=== PATIENT | female | born 1980 | race Caucasian/White ===

== ENCOUNTER 2016-10-04 23:16 | Emergency (ER) | payer OTHER | END 2016-10-05 00:57 | disposition home or self-care (01) | LOC: ER1 23:16 | DX: S90.32XA Contusion of left foot, initial encounter (principal); F17.210 Nicotine dependence, cigarettes, uncomplicated; Z88.2 Allergy status to sulfonamides; W20.8XXA Other cause of strike by thrown, projected or falling object, initial encounter | CPT/HCPCS: 73630; 99283 ==

== ENCOUNTER → 2016-10-15 | Outpatient (CLI) | payer OTHER ==
[2016-10-15 17:33] LABS: RED BLOOD COUNT 4.42 M/UL (4.00-5.10); WHITE BLOOD COUNT 8.7 K/UL (4.5-11.0)
[2016-10-15 17:53] LABS: BUN/CREATININE RATIO 20 (0-10)
== END ==
LOC: LAB 16:46
PROVIDERS: Emergency Medicine
DX: D50.8 Other iron deficiency anemias (principal); D64.89 Other specified anemias; E05.00 Thyrotoxicosis with diffuse goiter without thyrotoxic crisis or storm; F32.89 Other specified depressive episodes; G43.009 Migraine without aura, not intractable, without status migrainosus; G56.01 Carpal tunnel syndrome, right upper limb; G56.02 Carpal tunnel syndrome, left upper limb; G60.3 Idiopathic progressive neuropathy; G60.8 Other hereditary and idiopathic neuropathies; G89.4 Chronic pain syndrome; L23.89 Allergic contact dermatitis due to other agents; M13.871 Other specified arthritis, right ankle and foot; M13.872 Other specified arthritis, left ankle and foot; M15.8 Other polyosteoarthritis; M51.36 Other intervertebral disc degeneration, lumbar region; M62.81 Muscle weakness (generalized); M79.1 Myalgia; M79.671 Pain in right foot; M79.672 Pain in left foot; R10.813 Right lower quadrant abdominal tenderness; R21 Rash and other nonspecific skin eruption; W19.XXXS Unspecified fall, sequela
CPT/HCPCS: 36415; 80053; 84443; 85027

== ENCOUNTER → 2016-12-15 | Outpatient (CLI) | payer OTHER | LOC: KOH-I 12-03 13:15 | DX: G44.311 Acute post-traumatic headache, intractable (principal); D50.8 Other iron deficiency anemias; D64.89 Other specified anemias; E05.00 Thyrotoxicosis with diffuse goiter without thyrotoxic crisis or storm; F32.89 Other specified depressive episodes; F41.1 Generalized anxiety disorder; G43.009 Migraine without aura, not intractable, without status migrainosus; G56.01 Carpal tunnel syndrome, right upper limb; G56.02 Carpal tunnel syndrome, left upper limb; G60.3 Idiopathic progressive neuropathy; G60.8 Other hereditary and idiopathic neuropathies; G89.4 Chronic pain syndrome; L23.89 Allergic contact dermatitis due to other agents; M13.871 Other specified arthritis, right ankle and foot; M13.872 Other specified arthritis, left ankle and foot; M51.36 Other intervertebral disc degeneration, lumbar region; M62.81 Muscle weakness (generalized); M79.671 Pain in right foot; M79.672 Pain in left foot; R10.813 Right lower quadrant abdominal tenderness; R21 Rash and other nonspecific skin eruption; R90.82 White matter disease, unspecified | CPT/HCPCS: 70551 ==

== ENCOUNTER 2020-08-02 23:13 | Emergency (ER) | payer OTHER ==
[~2020-08-02 23:13] MED LIST: AMPYRA10 MG PO; BENTYL 20MG TAB20 MG PO; CALAN SR120 MG PO; CELEXA20 MG PO; CLARITIN10 MG PO; CLEOCIN HCL150 MG PO; EFFEXOR XR75 MG PO; ELAVIL 25 MG TA25 MG PO; FEOSOL325 MG PO; IBUPROFEN600 MG PO; LODINE CAP 300300 MG PO; MOBIC15 MG PO; NEURONTIN 400400 MG PO; NORCO 5-325 TA1 EACH PO; PERCOCET 5/325 T1 EA PO; PHENERGAN 25 MG25 M1 PO; PLEGRIDY SQ; PREDNISONE20 MG PO; TOPAMAX100 MG PO; TROKENDI XR100 MG PO; ZEBUTAL 50-3251 EACH PO; ZOFRAN ODT 4 MG4 MG PO
[2020-08-03] MEDS ORDERED: IBUPROFEN800 MG PO (01:47)
[2020-08-03] MEDS ORDERED: CYCLOBENZAPRINE5 MG PO (01:47)
[2020-09-10] MEDS ORDERED: AJOVY AUTO225 MG/1.5 SQ (12:51)
[2020-09-10] MEDS ORDERED: AMANTADINE100 M1 PO (12:52)
[2020-09-10] MEDS ORDERED: AMITRIPTYLINE H25 MG PO (12:53)
[2020-09-10] MEDS ORDERED: COPAXONE20 MG/1 ML SQ (12:55)
[2020-09-10] MEDS ORDERED: DALFAMPRIDINE E10 MG PO (12:57)
[2020-09-10] MEDS ORDERED: FLUOXETINE HCL10 M1 PO (12:58)
[2020-09-10] MEDS ORDERED: MODAFINIL200 MG PO (13:00)
[2020-09-10] MEDS ORDERED: ANAPROX DS550 MG PO (13:00)
[2020-09-10] MEDS ORDERED: NURTEC ODT75 MG PO (13:01)
[2020-09-10] MEDS ORDERED: TIZANIDINE HCL4 M1 PO (13:04)
[2020-09-10] MEDS ORDERED: TRAMADOL HCL50 MG PO (13:04)
[2020-09-10] MEDS ORDERED: SOLIFENACIN SUC10 MG PO (13:05)
== END 2020-08-03 02:14 | disposition home or self-care (01) ==
LOC: ER1 23:13
DX: S83.91XA Sprain of unspecified site of right knee, initial encounter (principal); S93.401A Sprain of unspecified ligament of right ankle, initial encounter; M79.671 Pain in right foot; G35 Multiple sclerosis; F17.200 Nicotine dependence, unspecified, uncomplicated; W19.XXXA Unspecified fall, initial encounter
CPT/HCPCS: 73562; 73610; 73630; 96372; 99283; J1885

== ENCOUNTER → 2020-09-10 | Day surgery (SDC) | payer OTHER ==
[~2020-09-10] MED LIST changes: +AJOVY AUTO225 MG/1.5 SQ; +AMANTADINE100 M1 PO; +AMITRIPTYLINE H25 MG PO; +ANAPROX DS550 MG PO; +COPAXONE20 MG/1 ML SQ; +CYCLOBENZAPRINE5 MG PO; +DALFAMPRIDINE E10 MG PO; +FLUOXETINE HCL10 M1 PO; +IBUPROFEN800 MG PO; +MODAFINIL200 MG PO; +NURTEC ODT75 MG PO; +SOLIFENACIN SUC10 MG PO; +TIZANIDINE HCL4 M1 PO; +TRAMADOL HCL50 MG PO
== END | disposition home or self-care (01) ==
LOC: OR 11:39
PROVIDERS: Urology
PROC: BT1F1ZZ Fluoroscopy of Left Kidney, Ureter and Bladder using Low Osmolar Contrast (ICD-10-PCS; 2020-09-10)
PROC: 0T9B80Z Drainage of Bladder with Drainage Device, Via Natural or Artificial Opening Endoscopic (ICD-10-PCS; principal; 2020-09-10 13:00)
DX: N32.81 Overactive bladder (principal); N39.41 Urge incontinence; R31.9 Hematuria, unspecified; N28.89 Other specified disorders of kidney and ureter; N13.30 Unspecified hydronephrosis; F17.210 Nicotine dependence, cigarettes, uncomplicated; I10 Essential (primary) hypertension; J45.909 Unspecified asthma, uncomplicated; Z91.041 Radiographic dye allergy status; Z88.2 Allergy status to sulfonamides; Z79.899 Other long term (current) drug therapy; Z79.1 Long term (current) use of non-steroidal anti-inflammatories (NSAID); Z20.822 Contact with and (suspected) exposure to COVID-19
CPT/HCPCS: C1769; C1894; C2617; J1956; J2250; J2405; J2704; J3010; J7030; J7040; J7120; Q9962

== ENCOUNTER → 2020-12-18 | Outpatient (CLI) | payer OTHER | LOC: KOH-I 08:16 | DX: R91.1 Solitary pulmonary nodule (principal) | CPT/HCPCS: 71250 ==

== ENCOUNTER → 2021-04-23 | Outpatient (CLI) | payer MEDICARE, OTHER | LOC: MRI 04-17 10:00 | DX: G35 Multiple sclerosis (principal) | CPT/HCPCS: 70553; 72156; A9577 ==

== ENCOUNTER → 2021-05-13 | Outpatient (CLI) | payer MEDICARE, OTHER | LOC: RAD 08:23 | DX: R13.10 Dysphagia, unspecified (principal); G35 Multiple sclerosis | CPT/HCPCS: 74230; 92611-GN ==

== ENCOUNTER 2022-01-29 20:25 | Emergency (ER) | payer MEDICARE, OTHER | END 2022-01-29 22:25 | disposition home or self-care (01) | LOC: ER1 20:25 | DX: S61.211A Laceration without foreign body of left index finger without damage to nail, initial encounter (principal); F17.200 Nicotine dependence, unspecified, uncomplicated; Z88.2 Allergy status to sulfonamides; W26.0XXA Contact with knife, initial encounter | CPT/HCPCS: 12001; 99282 ==

== ENCOUNTER → 2022-02-27 | Outpatient (CLI) | payer MEDICARE, OTHER | LOC: EROP 13:20 | DX: U07.1 COVID-19 (principal) | CPT/HCPCS: G0463 ==